=== PATIENT | female | born 1970 | race Caucasian/White ===

== ENCOUNTER 2018-04-26 16:45 | Emergency (ER) | payer OTHER ==
[2018-04-26] MEDS ORDERED: methylPREDNISolone SOD SUCC 125 MG/2 ML VIAL IVP ONE (17:02)
[2018-04-26] MEDS ORDERED: ONDANSETRON HCL/PF 4 MG/ 2ML VIAL IVP ONE (17:02)
[2018-04-26] MEDS ORDERED: 0.9 % SODIUM CHLORIDE 1,000 ML IV ONE (17:02)
--- NOTE | 2018-04-26 17:12 | ED Physician Documentation ---
Headache - HPI Stated Complaint: LAZCANO Chief Complaint: Headache Additional Information: Patient presents to ED with headache, nausea and vomiting since this morning. She admits to sick contacts with same GI symptoms, however, they do not have headache. Onset: hours (12) Timing: gradual Exposure To: none Severity: moderate Associated Symptoms: chills, nausea, vomiting Preceding Symptoms: denies: visual disturbance Exacerbated By: denies: light, noise - ROS NEURO/PSYCH: denies: confusion EYES/ENT: denies: sore throat CVS/RESP: denies: chest pain, shortness of breath GI/: denies: abdominal pain, diarrhea MS/SKIN/LYMPH: muscle aches - PAST HX Medical History: no pertinent history Surgical History: noncontributory Allergies/Adverse Reactions: Allergies Allergy/AdvReac Type Severity Reaction Status Date / Time No Known Allergies Allergy Verified 11/15/15 16:48 Home Medications: Ambulatory Orders Medication Instructions Recorded Ondansetron HCl Rapdis [Zofran Odt] 4 mg PO Q8 PRN #30 tab 04/26/18 - SOCIAL HX Smoking History: non-smoker Alcohol Use: none Drug Use: none - Family HX Family History: none - VITAL SIGNS Vital Signs: Vital Signs Temp Pulse Resp BP Pulse Ox 97.8 F 78 20 107/64 99 04/26/18 16:55 04/26/18 16:55 04/26/18 16:55 04/26/18 16:55 04/26/18 16:55 - REVIEWED ASSESSMENTS Nursing Assessment Reviewed: Yes Vitals Reviewed: Yes ED Results Lab/Radiology - Orders Orders: ED Orders Category Date Time Status Place IV Lock 1T Care 04/26/18 17:02 Active 0.9 % Sodium Chloride [Normal Saline] 1,000 ml Med 04/26/18 17:02 Discontinued IV Q1H Ondansetron HCl/Pf [Zofran 4 mg/2 ml] Med 04/26/18 17:02 Discontinued 4 mg IVP NOW ONE methylPREDNISolone SOD SUCC [Solu-MEDROL] Med 04/26/18 17:02 Discontinued 125 mg IVP NOW ONE Headache Physical Exam - EXAM General Appearance: mild distress EENT: PERRL Neck: supple Respiratory: no resp distress, breath sounds normal CVS: reg. rate & rhythm Abdomen: non-tender. No: tenderness Skin: color nml, no rash Extremitites: non-tender, normal range of motion, no edema - NEURO/PSYCH Higher Functions: alert, oriented x3, nml speech Cranial: no evidence of acute CVA Cerebellar: nml as tested Sensorimotor: motor nml Discharge Clincal Impression: Gastroenteritis Prescriptions: Ondansetron HCl Rapdis [Zofran Odt] 4 mg PO Q8 PRN #30 tab PRN Reason: nausea/vomiting Referrals: Yadiel España MD [Primary Care Provider] - 2 Days Additional Instructions: 1. Tylenol and/or Ibuprofen as needed for pain/fever 2. Zofran as needed for nausea. Sent to pharmacy 3. Follow up with PCP within 1 week 4. Return to ED with new or worsening symptoms. Condition: Stable Disposition: 01 HOME, SELF-CARE Decision to Admit: NO Date of Decison to Admit: 04/26/18 Decision Time: 18:14
[2018-04-26 18:25] VITALS: BP 98/67
== END 2018-04-26 18:24 | disposition home or self-care (01) ==
LOC: ED 16:45
DX: K52.9 Noninfective gastroenteritis and colitis, unspecified (principal)
CPT/HCPCS: 96365; 96375; 99282; 99284; J2405; J2930; J7030